=== PATIENT | female | born 1955 | race Caucasian/White ===

== ENCOUNTER 2022-05-30 10:22 | Day surgery (SDC) | payer MEDICARE, BC ==
[~2022-05-30 10:22] MED LIST: Acetaminophen 325 MG Tab PO SCH; EPINEPHrine 1 MG/ML SDV ONE; Lactated Ringers 1,000 ML IV SCH; Lidocaine 1%/Sod Bicarbonate in NS 8.4% 1 ML Syringe IDERM PRN; Morphine 8 MG, EPINEPHrine 0.3 MG, Cefuroxime 750 MG, Ketorolac 30 MG, Sodium Chloride ... PRN; Pregabalin 25 MG Cap PO SCH; Ropivacaine 0.5% 5 MG/ML 30 ML SDV ONE; Sodium Chloride 0.9% 10 ML Syringe FLUSH PRN; Sodium Chloride 0.9% 10 ML Syringe FLUSH SCH; oxyCODONE ER 10 MG TAB.ER PO SCH
[2022-05-30] MEDS ORDERED: fentaNYL 100 MCG/2 ML SDV ONE (10:44)
[2022-05-30] MEDS ORDERED: Ondansetron 4 MG/2 ML SDV ONE (10:44)
[2022-05-30] MEDS ORDERED: ceFAZolin 2 GM Vial ONE (10:44)
[2022-05-30] MEDS ORDERED: Lidocaine 1% 6 ML ONE (10:44)
[2022-05-30] MEDS ORDERED: Ketorolac 30 MG/ML SDV ONE (10:44)
[2022-05-30] MEDS ORDERED: Lactated Ringers 1,000 ML ONE (10:44)
[2022-05-30] MEDS ORDERED: Ketamine 500 mg/10 ML MDV ONE (10:45)
[2022-05-30] MEDS ORDERED: Midazolam 1 MG/ML 2 ML SDV ONE (10:45)
[2022-05-30] MEDS ORDERED: Propofol 200 MG/20 ML SDV ONE (10:46)
[2022-05-30] MEDS ORDERED: ePHEDrine 50 MG/ML SDV ONE (10:49)
[2022-05-30] MEDS ORDERED: Vancomycin 1 GM SDV ONE (10:59)
[2022-05-30] MEDS: Potassium Chloride 10 MEQ in Premix Bag 1 BAG IV SCH ×2 (11:11→11:15)
[2022-05-30] MEDS ORDERED: Triamcinolone Acetonide 40 MG/ML 1 ML SDV ONE ×2 (11:13→11:15)
[2022-05-30] MEDS ORDERED: Bupivacaine 0.25% 10 ML SDV ONE (11:14)
[2022-05-30] MEDS ORDERED: fentaNYL 100 MCG/2 ML SDV IVPUSH PRN (12:30)
[2022-05-30] MEDS ORDERED: HYDROmorphone 0.5 MG/0.5 ML Syringe IVPUSH PRN (12:30)
[2022-05-30] MEDS ORDERED: diphenhydrAMINE 50 MG/ML SDV IVPUSH PRN (12:30)
[2022-05-30] MEDS ORDERED: ePHEDrine 50 MG/ML SDV IVPUSH PRN (12:30)
[2022-05-30] MEDS ORDERED: Ondansetron 4 MG/2 ML SDV IVPUSH PRN (12:30)
[2022-05-30] MEDS ORDERED: Phenylephrine 1% 10 MG/ML SDV IVPUSH PRN (12:30)
[2022-05-30] MEDS ORDERED: Atropine 0.4 MG/ML SDV ONE (13:13)
[2022-05-30] MEDS ORDERED: Promethazine 25 MG/ML SDV IV ONE (16:34)
[2022-05-30] MEDS ORDERED: Promethazine 12.5 MG in Sodium Chloride 0.9% 50 ML IV ONE (17:00)
[2022-05-30] MEDS: oxyCODONE 5 MG Tab PO PRN (23:11)
[2022-05-31] MEDS: Cyclobenzaprine 10 MG Tab PO SCH ×2 (05:39→06:39)
[2022-05-31] MEDS ORDERED: Levothyroxine 25 MCG Tab PO SCH (06:00)
[2022-05-31] MEDS: oxyCODONE 5 MG Tab PO PRN ×2 (06:38→10:54)
[2022-05-31] MEDS ORDERED: Aspirin 325 MG Tab.EC PO SCH (08:00)
[2022-05-31] MEDS ORDERED: Hydrochlorothiazide 12.5 MG Cap PO SCH (09:00)
[2022-06-01] MEDS ORDERED: Levothyroxine 25 MCG Tab PO SCH (06:00)
== END 2022-05-31 12:27 | disposition home or self-care (01) ==
LOC: JD.SDS 10:22 → JD.MS 20:00 → JD.SDS 05-31 12:27
PROVIDERS: ATTEND Orthopaedic Surgery
DX: M17.0 Bilateral primary osteoarthritis of knee (principal); E78.00 Pure hypercholesterolemia, unspecified; E03.9 Hypothyroidism, unspecified; I10 Essential (primary) hypertension; G89.29 Other chronic pain; Z79.899 Other long term (current) drug therapy; Z79.890 Hormone replacement therapy; Z98.890 Other specified postprocedural states; Z86.16 Personal history of COVID-19; Z87.891 Personal history of nicotine dependence
CPT/HCPCS: 0055T; 20610; 27447; 36415; 73560; 80048; 85610; 97110; 97116; 97161; A9270; C1713; C1776; J0171; J0461; J0690; J0697; J1885; J2250; J2270; J2405; J2550; J2704; J2795; J3010; J3301; J3370; J3480; J3490; J7120; 01402; 64447; 76942